=== PATIENT | male | born 1930 | race Caucasian/White ===

== ENCOUNTER 2017-01-05 03:15 | Inpatient (IN) | payer MEDICARE, OTHER ==
--- NOTE | ~2017-01-05 | CN ---
Consultation Report [facility] [address] [place]. [address] NAME: STEPHAN DEE : 32 STATUS : ADM IN [facility]#: [id number] AGE: 86 ADM/REG DATE : 01/06/17 MR#: [id number] REPORT SERV DATE: 01/11/17 DICTATED BY: KAMI SHI DATE: 01/11/17 REPORT STATUS : Draft TRANSCRIBED BY: MODCassy DATE: 01/11/17 NEUROLOGY CONSULTATION DATE OF CONSULTATION: 01/11/2017 REASON FOR CONSULTATION: Acute encephalopathy. HOSPITALIST: Magdy Birch M.D. HISTORY OF PRESENT ILLNESS: The patient is an 86-year-old male, who was recently diagnosed with the UTI. He was placed on antibiotics (Ceftin). He had hematuria and so his urologist put in a Patel catheter. He developed a clot in the catheter and so his urologist hospitalized him, he was placed on continuous bladder irrigation. The patient improved, his labs were monitored, and when he presented to the hospital he was hyponatremic with a sodium level of 129. The patient did not have any seizure or imbalance, but he did have a change in his mental status according to the family. They stated that he was getting confused in the evening. Consequently, Neurology was asked to evaluate the patient for his change in mental status. [place] He lives by himself in a trailer. He does have one son in the area. Most of the information was obtained from the patient, from the chart, and also from a friend who came to visit the patient. According to the friend, the patient's brother and his grandson's come and check on him frequently, but the patient has seemed to do well by himself. He keeps his trailer very neat and clean and manages to fix meals himself. The patient states that he gets in his car and drives to nearby restaurants at least once a day for a meal. According to the family, the patient's mentation has been good, they have not noticed much confusion, occasionally toward the evening they will notice slight confusion, but his change in mentation has been sudden. PAST MEDICAL HISTORY: Coronary artery disease (stent placement), hypertension, COPD (the patient on 3 L of oxygen at home), diabetes mellitus type 2, frequent urinary tract infections, gross hematuria, hyperlipidemia, insomnia, BPH, and history of tobacco abuse. PAST SURGICAL HISTORY: Status post stent placement, bilateral cataract extraction with lens implantation, appendectomy, and kidney stone removal. HOME MEDICATIONS: Aspirin 81 mg daily, Lipitor 20 mg at bedtime, Plavix 75 mg daily, Advair Diskus 250/50 one inhalation twice a day, Amaryl 2 mg twice a day, Avapro 300 mg daily, Prinzide 20/12.5 mg daily, metformin 500 mg daily, Lopressor 50 mg daily, Aleve p.r.n., Flomax 0.4 mg daily, Restoril 15 mg at bedtime, Hytrin 5 mg daily, and an albuterol inhaler p.r.n. Consultation Report [address] [place]. [address] NAME: STEPHAN DEE : 32 STATUS : ADM IN PAT#: [id number] AGE: 86 ADM/REG DATE : 01/06/17 MR#: [id number] REPORT SERV DATE: 01/11/17 DICTATED BY: KAMI SHI DATE: 01/11/17 REPORT STATUS : Draft TRANSCRIBED BY: ALESSIA DATE: 01/11/17 ALLERGIES: SULFA. SOCIAL HISTORY: The patient was , his last year. He lives alone in a trailer. He has one son, who lives in the area. Brother and grandson check on him often. FAMILY HISTORY: Unable to obtain from the patient due to his acute confusion. REVIEW OF SYSTEMS: Again, unable to obtain from the patient. PHYSICAL EXAMINATION: VITAL SIGNS: The patient is an 86-year-old male, who stands 6 feet 1 inch tall. He weighs 78.5 kg. He is afebrile. Heart rate 91, respiratory rate 16, O2 saturations on 3 L nasal cannula 92%, blood pressure 162/71. NEURO: The patient is awake. He is alert. He does communicate appropriately. He is oriented to person, but states that he is at home in his [place]. He does know the president, but is a little confused to the date, time, and situation. His speech is clear. Language fluent. No dysarthria. Pupils are 3 mm. PERRLA. The patient does demonstrate some apraxia and has difficulty following certain commands, particularly if they are two and three-step commands. No obvious cranial nerve deficits. Dxcrlv-dt-zhew, no ataxia. He has no pronator drift. Although, he does have some asterixis in all extremities. No rest tremor or action tremor. Upper extremity strength is 5/5 bilaterally. Upper DTRs 2+ bilaterally. No reported sensory deficits. Lower extremity strength 5/5 bilaterally. Patellar reflexes are 2+ bilaterally. Plantar reflexes were silent bilaterally. No reported sensory deficits. NECK: No carotid bruits, JVD, or thyromegaly. CHEST: Lung sounds clear. CARDIAC: Regular rate and rhythm. No murmur, click, gallop, or rub. LABORATORY DATA: CBC normal. BMP shows a creatinine of 1.34, glucose is 136, A1c 6.5. Ammonia level is 20. Urine culture negative. CT of the head, deep white matter changes with some atrophy, but no acute changes. 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 ASSESSMENT/PLAN: 1. Acute metabolic encephalopathy. Etiology unknown at this time. The patient will undergo an MRI of the brain without gadolinium, carotid duplex study, echocardiogram. His Restoril and B & O suppositories will be discontinued, since this may be contributing to his acute encephalopathy. Additional lab work will be checked. If all of the above come back negative, the patient may undergo an EEG and/or LP. 2. Bqifflzg-bt-wfcawi dementia, supportive care will be offered at this time. He may go for outpatient neurological evaluation upon discharge. 3. Acute kidney injury. This will be managed per hospitalist team. 4. Grieving, possibly depression over the loss of his . The patient may need psychiatric consultation. Consultation Report [facility] [facility] [id number] [place]. [address] NAME: STEPHAN DEE : 32 STATUS : ADM IN PAT#: [id number] AGE: 86 ADM/REG DATE : 01/06/17 MR#: [id number] REPORT SERV DATE: 01/11/17 DICTATED BY: KAMI SHI DATE: 01/11/17 REPORT STATUS : Draft TRANSCRIBED BY: ALESSIA DATE: 01/11/17 Thank you again for including us in consultation. We will continue to follow with you. PATRICIA/ALESSIA Kami Shi DNP, [facility] / [id number] CC: Marco Watt III, M.D. Richard L Yap, M.D.
--- NOTE | ~2017-01-05 | DS ---
Discharge Summary [facility] [address] [place]. [address] NAME: STEPHAN MAHMOOD : 32 STATUS : DIS IN PAT#: [id number] AGE: 86 ADM/REG DATE : 01/06/17 MR#: [id number] REPORT SERV DATE: 01/26/17 DICTATED BY: STEFAN LANE III DATE: 01/24/17 REPORT STATUS : Draft TRANSCRIBED BY: ALESSIA DATE: 01/24/17 Data Collection from hospitalization DISCHARGE DIAGNOSES: 1. Urinary retention. 2. Confusions. 3. Dementia. 4. Hypertension. 5. Diabetes. 6. Chronic obstructive pulmonary disease. 7. Coronary artery disease. 8. Benign prostatic hypertrophy. 9. Insomnia. 10.Hyperlipidemia. 11.Gross hematuria. 12.History of tobacco use. 13.Frequent urinary tract infection. CONSULTATION: 1. Kami Everett DNP, ACNP-BC. 2. Magdy Birch M.D. PROCEDURES: 1. CT scan of the abdomen and pelvis without contrast, 01/05/2017. 2. CT scan of the brain without contrast, 01/10/2017. 3. MRI of the brain without contrast, 01/11/2017. 4. Carotid blood flow study, 01/12/2017. 5. Introduction of suprapubic catheter, 01/14/2017. DISCHARGE MEDICATIONS: Aspirin 81 mg daily, Lipitor 40 mg daily, Avapro 300 mg daily, Toprol XL 50 mg daily, MiraLax powder one packet daily as needed, Restoril 15 mg at bedtime, Hytrin 5 mg twice a day, Bion Tears one drop four times a day as needed, DuoNeb one nebulized inhaler six times a day as needed, Amaryl 2 mg twice a day, Spiriva one capsule via inhaler daily, Advair Diskus one inhalation every evening as instructed, Flomax 0.4 mg daily, Glucophage 500 mg every evening as instructed. CONDITION AT DISCHARGE: Stable. DISPOSITION: The patient was discharged to [facility] on a mechanical soft diet with activities as instructed. HOSPITAL COURSE: This is an 86-year-old man who presented to the emergency room with a clotted catheter. This patient has intermittent problems with urinary tract infection. He also had had episodes of urinary retention. When he was last seen in the office last year, he had a residual of 49. Intermittently, he will develop urinary retention. He has also had gross hematuria in the past. For the past weeks, he had had blood in the urine and had two catheters placed in the [facility], which subsequently clotted. He called that evening prior to this admission and was instructed to come to the emergency room. He is on Plavix. Discharge Summary [place] [id number] [place]. [address] NAME: STEPHAN MAHMOOD : 32 STATUS : DIS IN PAT#: [id number] AGE: 86 ADM/REG DATE : 01/06/17 MR#: [id number] REPORT SERV DATE: 01/26/17 DICTATED BY: STEFAN LANE III DATE: 01/24/17 REPORT STATUS : Draft TRANSCRIBED BY: ALESSIA DATE: 01/24/17 He had a urinary tract infection recently according to the emergency doctor at [facility]. He had been on Ceftin for this. He had had no fevers or chills. He had been voiding freely, but had developed the urinary tract infection. The catheter was changed, and he was irrigated until almost clear, but had spasms which responded to gentle flushing with a syringe by the nurse. He was admitted to the hospital at this time for further evaluation and treatment. Upon admission, creatinine level was 1.3. He was felt to have gross hematuria. The patient had been worked up with cystoscopy and Imaging several years ago. It was suspected that he was having spasms from the clot. Repeat CT renal stone study would be obtained to rule out any significant problems with the upper tract. We would not give dye since his creatinine was 1.3. It was felt that he would probably require a cystoscopy before or after discharge. He did have some constipation. His urine was clear with continuous bladder irrigation. On 01/07/2017, his urine was clear. He did have some spasms, but no bleeding. His abdomen was distended. He had positive bowel sounds. Bladder scan was performed. On 01/08/2017, he was afebrile. He was evaluated by Physical Therapy. He was seen by Dr. Magdy Birch regarding hyponatremia. The patient had improved and his labs were being monitored. When he came in, his sodium level was 141 and it was now 129. According to the nurses, he had not had any seizures or change in mental status, but he did have some sundowning. The patient denied any pain except for fullness kind of feeling in the suprapubic area. Creatinine level was 1.24. White count was 11.1. CT scan of the abdomen and pelvis showed chronic moderate hydronephrosis with cortical thinning in the right kidney with staghorn calculus in the renal pelvis and other nonobstructing intrarenal calculi present and bilateral renal cyst. We were unsure as to why there is such a drop in the sodium level in three days. It was felt that this could be a lab variant; however, we would have to rule out other things. He did not seem to be taking any medications that would drop it. Fortunately, he was asymptomatic at the present time. Lipitor was going to be continued. Antiplatelets would be restarted. Metoprolol and ARB were continued for blood pressure control as well. Diuretics would not be given. He was continued on oxygen, bronchodilators, and subcu insulin protocol. We would check his hemoglobin A1c. Metformin and Amaryl were held for now. The next day, his urine remained clear. Bladder scan was again performed. Volume in the bladder after voiding was 243 mL. Subcutaneous insulin protocol continued. He had had confusion during the night. He was felt to have some sundowning. On 01/11/2017, he had been very confused during the night, he pulled his IV out. He had a CT scan of the brain without contrast as well as an MRI of the brain without contrast. He was seen in consultation by Kami Everett regarding acute encephalopathy. As family said, he was getting confused in the evenings. According to his family, his mentation had been good. They had not noticed much confusion, but occasionally toward the evening, they would notice slight confusion. The change in his mentation here had been sudden . Creatinine level was 1.34. CT scan of the brain had shown deep white matter changes with some atrophy, but no acute changes. Urine culture had been negative. Ammonia level was 20. His acute metabolic encephalopathy was of unknown etiology at this time. A carotid duplex study was also requested as well as an echocardiogram. B and O suppositories and Restoril were discontinued. It was felt to have vkawpdvi-ve-opfdrk dementia. Supportive care was going to be offered at this time. It was felt that he was grieving. He was possibly depressed over the loss of his . He did pass a bedside dysphagia screening Discharge Summary [address] [place]. [address] NAME: STEPHAN MAHMOOD : 32 STATUS : DIS IN PAT#: [id number] AGE: 86 ADM/REG DATE : 01/06/17 MR#: [id number] REPORT SERV DATE: 01/26/17 DICTATED BY: STEFAN LANE III DATE: 01/24/17 REPORT STATUS : Draft TRANSCRIBED BY: MODCassy DATE: 01/24/17 study. On 01/12/2017, a carotid blood flow study was performed. Echocardiogram was also checked. He was evaluated by Physical Therapy. He still had confusion on and off. It was started in the late afternoon and being continued throughout the night. The patient had had an acute infarction seen on MRI. The next day, he was not voiding at all. His abdomen was soft. He was still very confused. On 01/14/2017, he was more alert. Creatinine level was 1.09. 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 There was a question of amyloid angiography. Echocardiogram had shown left ventricular ejection fraction of 55%. His acute encephalopathy had resolved. He was started on aspirin. Plavix would not be restarted. Lipitor was continued. Discharge planning was performed. On 01/15/2017, he had no complaints except for the loss of his teeth during the process of hospitalization. Hemoglobin A1c was 6.4. Creatinine was stable. Hyponatremia had resolved. Discharge instructions were given. Due to his improved and stable condition, he was discharged to [facility] with the above-stated instructions. Information collected by: Evon Mahmood I submit the above information as my discharge summary. TG/MODL Stefan Lane III, M.D. / [id number] CC: Marco Watt III, M.D. [facility]
--- NOTE | ~2017-01-05 | HP ---
History And Physical [place] [id number] [facility] [place]. [address] NAME: STEPHAN DEE CT : 32 STATUS : ADM [place] PAT#: [id number] AGE: 86 ADM/REG DATE : 01/05/17 MR#: [id number] REPORT SERV DATE: 01/05/17 DICTATED BY: STEFAN NUNO III DATE: 01/05/17 REPORT STATUS : Draft TRANSCRIBED BY: MODCassy DATE: 01/05/17 DATE OF ADMISSION: 01/05/2017 An 86-year-old white male, admitted to the emergency room with a clotted catheter. Mr. Dee is a patient who has had intermittent problems with UTIs. He has also had episodes of urinary retention. When last seen in the office last year, he had a residual of 49. Intermittently he will develop urinary retention. He has also had gross hematuria in the past. For the last week, he has had blood in the urine, had 2 catheters placed at [facility] which subsequently clotted. He called last night and was admitted to the emergency room. He is on Plavix and has had a UTI recently according to the ER doctor at [facility] and was on Ceftin for this. He has had no fever or chills. Had been voiding freely but developed the UTI. Catheter was changed and he was irrigated until almost clear but had spasms this morning that responded to gentle flushing with a syringe by the nurse. His vital signs have been stable. PAST MEDICAL HISTORY: He had a cardiac stent in 2012. He has hypertension, COPD, and diabetes. He has had cataract surgery, the stents, appendectomy, and a stone removal. He also has coronary artery disease. ALLERGIES: HE IS ALLERGIC TO SULFA. SOCIAL HISTORY: He does not smoke or drink. REVIEW OF SYSTEMS: Revealed no recent chest pain, some shortness of breath. No GI complaints. PHYSICAL EXAMINATION: VITAL SIGNS: He was afebrile. Vital signs are stable. Blood sugar was 144 on the morning of admission. HEENT: Unremarkable. NECK: Supple. LUNGS: Clear. HEART: He had a regular rate and rhythm without murmur or gallop. ABDOMEN: Soft. Bowel sounds are present and active. There is no distention. I hand irrigated his bladder and got several small old dark clots out and irrigated it crystal clear. EXTREMITIES: There was no pedal edema. LAB DATA: His hemoglobin was 12 which had dropped from 13 the week before. Creatinine is 1.3. IMPRESSION: Impression is that of gross hematuria. This has occurred with him before and he has been worked up with cystoscopy and imaging several years ago. I suspect he was having spasms this morning from the clot. I will get a repeat CT renal stone study to rule out any significant problems with the upper tract. I would not give dye since his creatinine is 1.3. He will probably require a cystoscopy before or after discharge. History And Physical [address] [address] NAME: STEPHAN DEE CT : 32 STATUS : ADM [place] PAT#: [id number] AGE: 86 ADM/REG DATE : 01/05/17 MR#: [id number] REPORT SERV DATE: 01/05/17 DICTATED BY: STEFAN NUNO III DATE: 01/05/17 REPORT STATUS : Draft TRANSCRIBED BY: ALESSIA DATE: 01/05/17 OB/MODCassy Stefan Nuno III, M.D. / [id number] CC: Marco Watt III, M.D.
--- NOTE | ~2017-01-05 | CN ---
Consultation Report [facility] [address] [place]. [address] NAME: STEPHAN DEE : 32 STATUS : ADM IN PAT#: [id number] AGE: 86 ADM/REG DATE : 01/06/17 MR#: [id number] REPORT SERV DATE: 01/08/17 DICTATED BY: BRICE LEWIS DATE: 01/08/17 REPORT STATUS : Draft TRANSCRIBED BY: MODL DATE: 01/08/17 CONSULTATION DATE OF CONSULTATION: REASON FOR CONSULTATION: Consult coming from Dr. Lane for hyponatremia. HISTORY OF PRESENT ILLNESS: This is an 86-year-old male with a history of CAD; hypertension; COPD, on 3 L of oxygen all the time; diabetes; has been having recurrent intermittent UTIs; urinary retention; and gross hematuria. The patient was recently diagnosed with a UTI and was placed on Ceftin. He had been having some hematuria and catheter was placed, which then clotted. The patient then was admitted by Dr. Lane, where the catheter was changed, irrigated, and placed on CBI for a while. The patient improved and his labs were monitored. When he came in, the sodium was 141, presently is 129, and we are now called to consult on this drop. According to the nurses, the patient did not have any seizures, change in mental status, but he did have some sundowning going on. The patient denies any pain except for a fullness kind of feeling in the suprapubic area. He denies any palpitation, shortness of breath, but he is chronically on oxygen. He denies any fever, chills, loss of consciousness, confusion, localized weakness, bowel changes, nausea, and vomiting, and the rest of the 14-point review of systems is negative except as above. PAST MEDICAL HISTORY: Includes CAD with three stents; no history of heart attack or stroke; COPD, on 3 L of oxygen; diabetes; cataract surgery; appendectomy; stone removal. ALLERGIES: HE IS ALLERGIC TO SULFA. MEDICATIONS: Include aspirin, Lipitor, Plavix, Advair, Amaryl, Avapro, metformin, metoprolol, naproxen, tamsulosin, Restoril, Hytrin, and albuterol/ipratropium. FAMILY HISTORY: Denies any family history of lung disease, heart disease. SOCIAL HISTORY: The patient is an ex-smoker, quit about 50 years ago. Denies alcohol or recreational drug use. PHYSICAL EXAMINATION: GENERAL: On physical exam, the patient is alert and oriented x3, not in cardiopulmonary distress, on 3 L of oxygen. VITAL SIGNS: Include a saturation of 97% on 3 L, blood pressure of 131/67, temperature of 97.5, pulse rate of 83, respiration of 18. NECK: He has supple neck. No JVD or carotid bruits. No lymphadenopathy. HEENT: [place] conjunctivae. Anicteric sclerae. No pharyngeal erythema. LUNGS: Clear lungs. No rales, no wheezes. CARDIOVASCULAR: Regular rate and rhythm. No murmurs. ABDOMEN: Positive bowel sounds. Soft, nontender. No masses. Fair pulses. No edema. Consultation Report [address] [place]. [address] NAME: STEPHAN DEE : 32 STATUS : ADM IN [facility]#: [id number] AGE: 86 ADM/REG DATE : 01/06/17 MR#: [id number] REPORT SERV DATE: 01/08/17 DICTATED BY: BRICE LEWIS. DATE: 01/08/17 REPORT STATUS : Draft TRANSCRIBED BY: ALESSIA DATE: 01/08/17 NEURO: Nonlocalizing. LABORATORY DATA: Reveals a sodium of 129, chloride of 97, bicarb of 27, BUN and creatinine of 19 and 1.24 with a glucose of 181. White count of 11.1, hemoglobin and hematocrit of 12.1 and 35.6. CAT scan of the abdomen and pelvis shows chronic moderate hydronephrosis with cortical thinning in the right kidney with staghorn calculus in the renal pelvis and other nonobstructing intrarenal calculi present, bilateral renal cysts. ASSESSMENT: 1. Hyponatremia. 2. Coronary artery disease with stent. 3. Hypertension. 4. Chronic obstructive pulmonary disease. 5. Diabetes. 6. Chronic kidney disease, 3. I will defer the urological problems with you. With regard to the hyponatremia, I am not sure why there was a huge drop in sodium in three days. This could be a lab variance, however, we have to rule out other things. He does not seem to be taking any medications to drop it. Fortunately, he is asymptomatic at present. We will monitor the sodium for now. Continue the Lipitor and restart antiplatelets when it is okay with you. Continue the metoprolol and ARB for BP control as well, but do not give any diuretics. Continue oxygen, bronchodilators, subcu insulin protocol, and we will check the hemoglobin A1c. I agree with holding metformin and Amaryl for now. Follow the creatinine. Thank you for the consult. I will follow the patient with you. ZHANG/ALESSIA Brice Lewis M.D. / [id number] CC: Marco Watt III, M.D.
[2017-01-05 02:52] LABS: BASOPHILS 0.2 %; BASOPHILS ABSOLUTE 0.02 10/3/uL (0.0-0.16); EOSINOPHILS 1.2 %; EOSINOPHILS ABSOLUTE 0.13 10/3/uL (0.0-0.53); HEMOGLOBIN 12.1 g/dL (13.6-17.8); IMMATURE GRANULOCYTES 0.2 %; IMMATURE GRANULOCYTES ABSOLUTE 0.02 10/3/uL (0.0-0.11); LYMPHOCYTES 13.7 %; LYMPHOCYTES ABSOLUTE 1.45 10/3/uL (0.67-4.30); MEAN CORPUS HGB CONC 34.5 g/dL (32.0-36.0); MEAN CORPUSCULAR HEMOGLOB 30.3 pg (26.0-34.0); MEAN PLATELET VOLUME 9.3 fL (9.2-13.0); MONOCYTES ABSOLUTE 1.06 10/3/uL (0.21-1.20); NEUTROPHILS 74.7 %; PLATELET COUNT 239 10/3/uL (150-400); RED CELL COUNT 3.99 10/6/uL (4.7-6.1); WHITE BLOOD CELLS 10.6 10/3/uL (4.5-10.5)
[2017-01-05 02:53] LABS: HEMATOCRIT 35.1 % (40.0-51.0); MANUAL DIFF NO %
[2017-01-05 03:02] LABS: INTERNATIONAL NORMAL RATI 1.2 UNITS (-); PARTIAL THROMBO TIME 33.1 SEC (22.5-37.2); PROTIME (NOT ORD) 14.7 SEC (12.0-14.5)
[2017-01-05 03:05] LABS: BUN (BLOOD UREA NITROGEN) 15 MG/DL (6-23); CALCIUM, SERUM 9.3 MG/DL (8.5-10.4); CHLORIDE, SERUM 108 MMOL/L (96-112); CO2 (CARBON DIOXIDE) 27 MMOL/L (24-34); CREATININE 1.31 MG/DL (0.70-1.30); GFR AFRICAN AMERICAN 58 ML/MIN (>=60); GFR NON AFRICAN AMERICAN 50 ML/MIN (>=60); GLUCOSE, SERUM 144 MG/DL (60-99); POTASSIUM, SERUM 3.9 MMOL/L (3.5-5.3); SODIUM, SERUM 141 MMOL/L (135-148)
[~2017-01-05 03:15] MED LIST: ALEVE220 MG PO; ASAB PO; LIPITOR20 PO; LOP50 PO; PRINZIDE1 TA1 PO
[2017-01-05 04:29] LABS: ASCORBIC ACID (UR NOT ORDER) NEG (NEG); BILIRUBIN, URINE NEGATIVE (NEG); ER URINALYSIS TAT 0 Hrs 15 Mins; KETONE, URINE NEGATIVE (NEG); LEUKOCYTE ESTERASE(NOT OR LARGE (NEG); NITRITE (URINE) NEG (NEG)
[2017-01-05 04:30] LABS: WBC (NOT ORDERED) (RFLEX) > 182 (0-5)
[2017-01-05] MEDS ORDERED: *UNABLE1 (05:30)
[2017-01-06 08:35] LABS: BASOPHILS 0.3 %; BASOPHILS ABSOLUTE 0.03 10/3/uL (0.0-0.16); EOSINOPHILS 1.5 %; EOSINOPHILS ABSOLUTE 0.17 10/3/uL (0.0-0.53); HEMATOCRIT 36.1 % (40.0-51.0); HEMOGLOBIN 11.9 g/dL (13.6-17.8); IMMATURE GRANULOCYTES 0.3 %; IMMATURE GRANULOCYTES ABSOLUTE 0.03 10/3/uL (0.0-0.11); LYMPHOCYTES 14.7 %; LYMPHOCYTES ABSOLUTE 1.64 10/3/uL (0.67-4.30); MEAN CORPUSCULAR HEMOGLOB 29.2 pg (26.0-34.0); MEAN CORPUSCULAR VOLUME 88.5 fL (80-100); MEAN PLATELET VOLUME 9.7 fL (9.2-13.0); MONOCYTES 12.4 %; MONOCYTES ABSOLUTE 1.38 10/3/uL (0.21-1.20); NEUTROPHILS 70.8 %; NEUTROPHILS ABSOLUTE 7.88 10/3/uL (2.02-8.40); PLATELET COUNT 254 10/3/uL (150-400); RBC DISTRIBUTION WIDTH 13.3 % (12.0-16.0); RED CELL COUNT 4.08 10/6/uL (4.7-6.1); WHITE BLOOD CELLS 11.1 10/3/uL (4.5-10.5)
[2017-01-06 08:38] LABS: MANUAL DIFF NO %
[2017-01-06] MEDS ORDERED: AMARYL2 PO ×2 (11:19→20:14)
[2017-01-06] MEDS ORDERED: AVAPRO300 MG PO ×2 (11:20→20:16)
[2017-01-06] MEDS ORDERED: FLOMAX4 PO ×2 (11:20→20:16)
[2017-01-06] MEDS ORDERED: PLAVIX PO ×2 (11:22→20:15)
[2017-01-06] MEDS ORDERED: HYT5 PO ×2 (11:22→20:15)
[2017-01-06] MEDS ORDERED: REST15 PO ×2 (11:23→20:17)
[2017-01-06] MEDS ORDERED: GLUCPH PO ×2 (11:24→20:17)
[2017-01-06] MEDS ORDERED: ADVAIR250 INH (11:25)
[2017-01-06] MEDS ORDERED: ALBUTEROL (11:31)
[2017-01-06] MEDS ORDERED: IPRATROPIUM (11:31)
[2017-01-06] MEDS ORDERED: BION TEARS OPH (20:13)
[2017-01-06] MEDS ORDERED: DUONEB INH (20:14)
[2017-01-06] MEDS ORDERED: ADVAIR250 PO (20:14)
[2017-01-06] MEDS ORDERED: SPIRIVA INH (20:14)
[2017-01-06] MEDS ORDERED: ASAB PO (20:15)
[2017-01-06] MEDS ORDERED: TOPXL50 PO (20:16)
[2017-01-06] MEDS ORDERED: LIPITOR40 PO (20:16)
[2017-01-07 03:32] LABS: HEMATOCRIT 35.6 % (40.0-51.0); HEMOGLOBIN 12.1 g/dL (13.6-17.8)
[2017-01-07 03:38] LABS: INTERNATIONAL NORMAL RATI 1.2 UNITS (-); PROTIME (NOT ORD) 14.7 SEC (12.0-14.5)
[2017-01-08 10:19] LABS: CALCIUM, SERUM 8.9 MG/DL (8.5-10.4); CO2 (CARBON DIOXIDE) 27 MMOL/L (24-34); CREATININE 1.24 MG/DL (0.70-1.30); GFR AFRICAN AMERICAN 61 ML/MIN (>=60); GFR NON AFRICAN AMERICAN 53 ML/MIN (>=60); POTASSIUM, SERUM 4.5 MMOL/L (3.5-5.3)
[2017-01-08 10:20] LABS: BUN (BLOOD UREA NITROGEN) 19 MG/DL (6-23); CHLORIDE, SERUM 97 MMOL/L (96-112); GLUCOSE, SERUM 181 MG/DL (60-99); SODIUM, SERUM 129 MMOL/L (135-148)
[2017-01-09 06:27] LABS: BASOPHILS 0.1 %; BASOPHILS ABSOLUTE 0.01 10/3/uL (0.0-0.16); EOSINOPHILS 1.9 %; EOSINOPHILS ABSOLUTE 0.16 10/3/uL (0.0-0.53); HEMOGLOBIN 11.6 g/dL (13.6-17.8); IMMATURE GRANULOCYTES 0.1 %; IMMATURE GRANULOCYTES ABSOLUTE 0.01 10/3/uL (0.0-0.11); LYMPHOCYTES 11.5 %; LYMPHOCYTES ABSOLUTE 0.95 10/3/uL (0.67-4.30); MANUAL DIFF NO %; MEAN CORPUS HGB CONC 33.1 g/dL (32.0-36.0); MEAN CORPUSCULAR HEMOGLOB 28.9 pg (26.0-34.0); MEAN CORPUSCULAR VOLUME 87.3 fL (80-100); MEAN PLATELET VOLUME 9.5 fL (9.2-13.0); MONOCYTES 11.8 %; MONOCYTES ABSOLUTE 0.97 10/3/uL (0.21-1.20); NEUTROPHILS 74.6 %; NEUTROPHILS ABSOLUTE 6.14 10/3/uL (2.02-8.40); PLATELET COUNT 234 10/3/uL (150-400); RED CELL COUNT 4.01 10/6/uL (4.7-6.1); WHITE BLOOD CELLS 8.2 10/3/uL (4.5-10.5)
[2017-01-09 06:46] LABS: BUN (BLOOD UREA NITROGEN) 20 MG/DL (6-23); CALCIUM, SERUM 8.6 MG/DL (8.5-10.4); CHLORIDE, SERUM 102 MMOL/L (96-112); CO2 (CARBON DIOXIDE) 30 MMOL/L (24-34); CREATININE 1.26 MG/DL (0.70-1.30); GFR AFRICAN AMERICAN 60 ML/MIN (>=60); GFR NON AFRICAN AMERICAN 52 ML/MIN (>=60); POTASSIUM, SERUM 4.4 MMOL/L (3.5-5.3); SODIUM, SERUM 135 MMOL/L (135-148)
[2017-01-09 06:48] LABS: GLUCOSE, SERUM 114 MG/DL (60-99)
[2017-01-10 10:52] LABS: BUN (BLOOD UREA NITROGEN) 18 MG/DL (6-23); CALCIUM, SERUM 8.9 MG/DL (8.5-10.4); CHLORIDE, SERUM 108 MMOL/L (96-112); CO2 (CARBON DIOXIDE) 27 MMOL/L (24-34); GFR AFRICAN AMERICAN 71 ML/MIN (>=60); GFR NON AFRICAN AMERICAN 61 ML/MIN (>=60); GLUCOSE, SERUM 136 MG/DL (60-99); POTASSIUM, SERUM 4.2 MMOL/L (3.5-5.3)
[2017-01-10 10:53] LABS: SODIUM, SERUM 142 MMOL/L (135-148)
[2017-01-10 19:33] LABS: ALLENS TEST Pos; BE (BASE EXCESS) -0.6 MEQ/L (0 +/- 2.5); DEVICE NC; INSTRUMENT SERIAL # 8083; METHEMOGLOBIN 0.2 % (0-3); O2 CONTENT 16.4 VOL% (18-24); OPERATOR ID 35859; PCO2 (CO2 TENSION) 39 MMHG (35-45); PO2 (O2 TENSION) 96 MMHG (79-93); SAMPLE Arterial; pH 7.41 (7.37-7.43)
[2017-01-11 05:56] LABS: BASOPHILS 0.3 %; BASOPHILS ABSOLUTE 0.03 10/3/uL (0.0-0.16); EOSINOPHILS 0.8 %; EOSINOPHILS ABSOLUTE 0.08 10/3/uL (0.0-0.53); HEMATOCRIT 34.4 % (40.0-51.0); HEMOGLOBIN 11.5 g/dL (13.6-17.8); IMMATURE GRANULOCYTES 0.3 %; IMMATURE GRANULOCYTES ABSOLUTE 0.03 10/3/uL (0.0-0.11); LYMPHOCYTES 13.8 %; LYMPHOCYTES ABSOLUTE 1.45 10/3/uL (0.67-4.30); MEAN CORPUS HGB CONC 33.4 g/dL (32.0-36.0); MEAN CORPUSCULAR HEMOGLOB 29.5 pg (26.0-34.0); MEAN CORPUSCULAR VOLUME 88.2 fL (80-100); MEAN PLATELET VOLUME 9.6 fL (9.2-13.0); MONOCYTES 10.8 %; MONOCYTES ABSOLUTE 1.13 10/3/uL (0.21-1.20); NEUTROPHILS ABSOLUTE 7.75 10/3/uL (2.02-8.40); PLATELET COUNT 264 10/3/uL (150-400); RBC DISTRIBUTION WIDTH 13.3 % (12.0-16.0); WHITE BLOOD CELLS 10.5 10/3/uL (4.5-10.5)
[2017-01-11 05:58] LABS: MANUAL DIFF NO %
[2017-01-11 06:11] LABS: BUN (BLOOD UREA NITROGEN) 20 MG/DL (6-23); CALCIUM, SERUM 9.1 MG/DL (8.5-10.4); CHLORIDE, SERUM 109 MMOL/L (96-112); CO2 (CARBON DIOXIDE) 26 MMOL/L (24-34); CREATININE 1.34 MG/DL (0.70-1.30); GFR AFRICAN AMERICAN 56 ML/MIN (>=60); GFR NON AFRICAN AMERICAN 48 ML/MIN (>=60); GLUCOSE, SERUM 136 MG/DL (60-99); POTASSIUM, SERUM 4.1 MMOL/L (3.5-5.3); SODIUM, SERUM 143 MMOL/L (135-148)
[2017-01-12 07:17] LABS: C-REACTIVE PROTEIN 7.7 MG/L (<8.0); CALCIUM, SERUM 8.7 MG/DL (8.5-10.4); CHLORIDE, SERUM 108 MMOL/L (96-112); CHOL/HDL RATIO(NOT ORDER) 1.4 (0-5); CHOLESTEROL 83 MG/DL (< 200); CO2 (CARBON DIOXIDE) 30 MMOL/L (24-34); CREATININE 1.25 MG/DL (0.70-1.30); FREE T4 1.24 NG/DL (0.76-1.46); GFR AFRICAN AMERICAN 61 ML/MIN (>=60); GFR NON AFRICAN AMERICAN 53 ML/MIN (>=60); HDL CHOLESTEROL 60 MG/DL (> 39); LDL CHOLESTEROL 12 MG/DL (< 130); NON-HDL CHOLESTEROL 23 MG/DL (< 160); POTASSIUM, SERUM 4.4 MMOL/L (3.5-5.3); SODIUM, SERUM 141 MMOL/L (135-148); TRIGLYCERIDE 58 MG/DL (< 150); ULTRASENSITIVE TSH 0.744 MCIU/ML (0.358-3.740)
[2017-01-12 07:18] LABS: BUN (BLOOD UREA NITROGEN) 24 MG/DL (6-23); FOLATE 17.7 NG/ML (>5.2); GLUCOSE, SERUM 106 MG/DL (60-99)
[2017-01-12 07:44] LABS: PROCALCITONIN <0.05 ng/mL (<0.5)
[2017-01-14 06:44] LABS: BASOPHILS 0.3 %; BASOPHILS ABSOLUTE 0.03 10/3/uL (0.0-0.16); EOSINOPHILS 3.9 %; EOSINOPHILS ABSOLUTE 0.39 10/3/uL (0.0-0.53); HEMATOCRIT 32.3 % (40.0-51.0); HEMOGLOBIN 10.5 g/dL (13.6-17.8); IMMATURE GRANULOCYTES 0.3 %; IMMATURE GRANULOCYTES ABSOLUTE 0.03 10/3/uL (0.0-0.11); LYMPHOCYTES 16.1 %; LYMPHOCYTES ABSOLUTE 1.61 10/3/uL (0.67-4.30); MEAN CORPUS HGB CONC 32.5 g/dL (32.0-36.0); MEAN CORPUSCULAR HEMOGLOB 29.6 pg (26.0-34.0); MEAN PLATELET VOLUME 9.5 fL (9.2-13.0); MONOCYTES 10.4 %; MONOCYTES ABSOLUTE 1.04 10/3/uL (0.21-1.20); NEUTROPHILS ABSOLUTE 6.91 10/3/uL (2.02-8.40); PLATELET COUNT 238 10/3/uL (150-400); RBC DISTRIBUTION WIDTH 13.5 % (12.0-16.0); RED CELL COUNT 3.55 10/6/uL (4.7-6.1)
[2017-01-14 06:50] LABS: MANUAL DIFF NO %
[2017-01-14 06:51] LABS: BUN (BLOOD UREA NITROGEN) 23 MG/DL (6-23); CALCIUM, SERUM 8.4 MG/DL (8.5-10.4); CHLORIDE, SERUM 110 MMOL/L (96-112); CO2 (CARBON DIOXIDE) 24 MMOL/L (24-34); CREATININE 1.09 MG/DL (0.70-1.30); GFR AFRICAN AMERICAN 72 ML/MIN (>=60); GFR NON AFRICAN AMERICAN 62 ML/MIN (>=60); GLUCOSE, SERUM 84 MG/DL (60-99); POTASSIUM, SERUM 4.2 MMOL/L (3.5-5.3); SODIUM, SERUM 143 MMOL/L (135-148)
== END 2017-01-15 19:20 | DRG 698 ==
LOC: ER 03:15 → 4SO 04:00
PROVIDERS: Internal Medicine; Specialist; Urology
PROC: BT40ZZZ Ultrasonography of Bladder (ICD-10-PCS; principal; 2017-01-14)
PROC: BT101ZZ Fluoroscopy of Bladder using Low Osmolar Contrast (ICD-10-PCS; principal; 2017-01-14)
PROC: 0T9B30Z Drainage of Bladder with Drainage Device, Percutaneous Approach (ICD-10-PCS; principal; 2017-01-14)
DX: T83.098A Other mechanical complication of other urinary catheter, initial encounter (principal); G93.41 Metabolic encephalopathy; I63.8 Other cerebral infarction; N17.9 Acute kidney failure, unspecified; E87.1 Hypo-osmolality and hyponatremia; N13.2 Hydronephrosis with renal and ureteral calculous obstruction; F05 Delirium due to known physiological condition; N39.0 Urinary tract infection, site not specified; Y84.6 Urinary catheterization as the cause of abnormal reaction of the patient, or of later complication, without mention of misadventure at the time of the procedure; J44.9 Chronic obstructive pulmonary disease, unspecified; R31.0 Gross hematuria; Z95.5 Presence of coronary angioplasty implant and graft; Z88.2 Allergy status to sulfonamides; R33.9 Retention of urine, unspecified; Z79.02 Long term (current) use of antithrombotics/antiplatelets; I25.10 Atherosclerotic heart disease of native coronary artery without angina pectoris; Z99.81 Dependence on supplemental oxygen; Z87.891 Personal history of nicotine dependence; N40.0 Benign prostatic hyperplasia without lower urinary tract symptoms; Z79.82 Long term (current) use of aspirin; Z79.84 Long term (current) use of oral hypoglycemic drugs; Z87.442 Personal history of urinary calculi; F43.21 Adjustment disorder with depressed mood; I12.9 Hypertensive chronic kidney disease with stage 1 through stage 4 chronic kidney disease, or unspecified chronic kidney disease; E11.22 Type 2 diabetes mellitus with diabetic chronic kidney disease; N18.3 Chronic kidney disease, stage 3 (moderate); K59.00 Constipation, unspecified; F03.90 Unspecified dementia, unspecified severity, without behavioral disturbance, psychotic disturbance, mood disturbance, and anxiety
CPT/HCPCS: 36415; 36600; 51102; 70450; 70551; 71010; 74176; 77002; 80048; 80061; 81001; 82140; 82306; 82533; 82607; 82746; 82805; 82962; 83036; 83605; 84145; 84439; 84443; 85014; 85018; 85025; 85610; 85652; 85730; 86140; 86850; 86900; 86901; 87086; 93880; 94640; 97110-GP; 97116-GP; 97162-GP; 97164-GP; 97165-GO; 99152; 99284; A9270-GY; C1729; C1769; C8929; G8978-CK-GP; G8979-CJ-GP; G8980-CJ-GP; G8987-CJ-GO; G8988-CI-GO; J1170; J2250; J3010; J3486; Q9957; Q9967